=== PATIENT | male | born 1935 | race Caucasian/White ===

== ENCOUNTER 2017-12-01 15:04 | Inpatient (IN) | payer MEDICARE ==
[~2017-12-01] VITALS: Ht 188 cm; Wt 112.6 kg
--- NOTE | 2017-12-01 17:10 | Diagnostic Imaging Report ---
A single frontal view of the chest. HISTORY: Shortness of breath, A. fib COMPARISON: None available. DISCUSSION: Portable technique, limits sensitivity of the exam. Soft tissue attenuation partially limits sensitivity of the exam. Multiple additional artifacts. Tubes/Lines: A single-lead implanted left-sided cardiac device. Lungs and pleura: Low lung volumes result in bibasilar vascular crowding, accentuation of the pulmonary interstitial markings, central pulmonary vasculature, and the cardiac silhouette. Allowing for these limitations, the findings are as follows: Probable small to moderate left and small right pleural effusions with adjacent atelectasis. Diffuse pulmonary increased interstitial markings. Underlying pathology could be obscured. Heart and mediastinum: The cardiac silhouette and central pulmonary vessel suture are enlarged.. Bones: No acute osseous lesion is identified, given this limited exam. IMPRESSION: 1. Findings compatible with volume overload resulting in central pulmonary vascular congestion, interstitial edema, and left greater than right pleural effusions with adjacent atelectasis. 2. Recommend short term follow up routine PA and lateral chest radiographs, in 6-8 weeks, to evaluate for resolution versus return to baseline. Signed by: Dr. Cristobal Martinez D.O., M.M.M. on 12/01/2017 5:07 PM
[2017-12-01] MEDS ORDERED: MORPHINE SULFATE 2 MG/ML SYR IV PRN (17:30)
[2017-12-01] MEDS ORDERED: ONDANSETRON HCL INJ 2 MG/ML VIAL IV PRN (17:30)
[2017-12-01] MEDS ORDERED: SODIUM CHLORIDE FLUSH 10 ML SYR INJ PRN (17:30)
[2017-12-01] MEDS ORDERED: DEXTROSE 50% SYRINGE 50 ML IV PRN (19:00)
[2017-12-01 20:20] VITALS: BP 129/73
[2017-12-01 20:45] VITALS: BP 129/73
[2017-12-01] MEDS ORDERED: INSULIN REGULAR, HUMAN 100 UNIT/1 ML 3ML VIAL SQ SCH (21:00)
[2017-12-01] MEDS: FUROSEMIDE INJ 10 MG/ML 4 ML VIAL IV SCH (22:51)
[2017-12-01] MEDS: POTASSIUM CHLORIDE 20 MEQ TAB CR PO SCH (22:52)
[2017-12-01] MEDS: ZOLPIDEM TARTRATE 5 MG TAB PO PRN (23:13)
[2017-12-02] VITALS (7 sets, daily range): BP systolic 111–145; BP diastolic 61–76
[2017-12-02 03:03] LABS: CREATINE KINASE 113 IU/L (30-200)
[2017-12-02 06:41] LABS: CHOL/HDL RATIO 1.8 (3.9-4.7)
[2017-12-02] MEDS ORDERED: DILTIAZEM HCL 5 MG/ML 5 ML VIAL IV STA (06:46)
[2017-12-02 06:54] LABS: BASOPHILS % 0.2 % (0.0-1.0); EOSINOPHILS # (AUTO) 0.1 (0.0-0.4); EOSINOPHILS % 1.2 % (0.0-6.0); HEMATOCRIT 32.5 % (38.2-49.6); HEMOGLOBIN 10.2 g/dL (14.0-18.0); LYMPHOCYTES % 9.4 % (18.0-39.1); MEAN CORPUSCULAR HEMOGLOBIN 27.7 pg (28-32); MEAN CORPUSCULAR HGB CONC 31.4 g/dL (31-35); MEAN CORPUSCULAR VOLUME 88.3 fL (81-99); MONOCYTES # (AUTO) 1.3 (0.2-0.8); MONOCYTES % 12.6 % (4.4-11.3); NEUTROPHILS # (AUTO) 7.8 (2.1-6.9); NEUTROPHILS % 76.2 % (38.7-80.0); PLATELET COUNT 213 x10e3/uL (140-360); RED BLOOD COUNT 3.68 x10e6/uL (4.3-5.7)
[2017-12-02] MEDS ORDERED: DILTIAZEM HCL VIAL 5 ML ONE (08:55)
[2017-12-02] MEDS ORDERED: ASPIRIN 325 MG TAB EC PO SCH (09:00)
[2017-12-02] MEDS ORDERED: DILTIAZEM HCL 5 MG/ML 5 ML VIAL IV ONE (09:00)
[2017-12-02] MEDS ORDERED: DILTIAZEM HCL 60 MG TAB PO ONE (09:00)
[2017-12-02 09:14] LABS: BLOOD UREA NITROGEN 30 mg/dL (7-26); BUN/CREATININE RATIO 32 (6-25); CALCIUM 7.9 mg/dL (8.4-10.2); CARBON DIOXIDE 19 mmol/L (22-29); CHLORIDE 95 mmol/L (98-107); CREATININE, SERUM 0.95 mg/dL (0.72-1.25); EST GLOMERULAR FILTRATION RATE > 60 ML/MIN (60-); MAGNESIUM 1.9 MG/DL (1.3-2.1); SODIUM 131 mmol/L (136-145)
[2017-12-02 09:19] LABS: GLUCOSE 58 mg/dL (74-118)
[2017-12-02] MEDS: POTASSIUM CHLORIDE 20 MEQ TAB CR PO SCH (09:25)
[2017-12-02] MEDS: FUROSEMIDE INJ 10 MG/ML 4 ML VIAL IV SCH (09:25)
[2017-12-02 09:35] LABS: THYROID STIMULATING HORMONE 5.595 uIU/mL (0.350-4.940)
[2017-12-02 10:00] LABS: CREATINE KINASE 92 IU/L (30-200)
[2017-12-02] MEDS ORDERED: MORPHINE SULFATE INJ 4 MG/ML INJ IV PRN (10:45)
[2017-12-02] MEDS ORDERED: ACETAMINOPHEN 325 MG TAB PO PRN (10:45)
[2017-12-02] MEDS ORDERED: LACTULOSE SYRUP 20 GM/30 ML UDC PO ONE (10:45)
[2017-12-02] MEDS: MAGNESIUM/ALUMINUM/SIMETHICONE 30 ML UDC PO PRN ×2 (11:00→22:04)
[2017-12-02] MEDS ORDERED: DIGOXIN 0.25 MG TAB PO ONE (11:15)
[2017-12-02] MEDS ORDERED: DIGOXIN INJ 0.25 MG/ML 2 ML AMP IV ONE (11:15)
[2017-12-02] MEDS: INSULIN LISPRO 100 UNIT/1 ML 3ML VIAL SQ SCH ×3 (11:30→21:00)
[2017-12-02 11:31] LABS: INR 4.19
[2017-12-02 11:32] LABS: PARTIAL THROMBOPLASTIN TIME 46.5 seconds (23.8-35.5)
[2017-12-02 11:40] LABS: PROTHROMBIN TIME 43.2 seconds (11.9-14.5)
[2017-12-02] MEDS ORDERED: IPRATROPIUM BROMIDE 0.02% 2.5 ML NEB ONE (12:48)
[2017-12-02] MEDS: IPRATROPIUM BROMIDE 0.02% 2.5 ML NEB NEB PRN ×3 (12:57→20:11)
--- NOTE | 2017-12-02 14:03 | Diagnostic Imaging Report ---
EXAMINATION: CHEST SINGLE (PORTABLE) INDICATION: Pulmonary edema. COMPARISON: None FINDINGS: TUBES and LINES: Left-sided single lead cardiac device in unchanged position. LUNGS: Low lung volumes. Bilateral perihilar and interstitial opacities. Left retrocardiac opacity and patchy opacities at the lung bases. PLEURA: No pleural effusion or pneumothorax. HEART AND MEDIASTINUM: The cardiomediastinal silhouette is unchanged. Atherosclerotic calcifications of the aortic arch. BONES AND SOFT TISSUES: No acute osseous lesion. Soft tissues are unremarkable. UPPER ABDOMEN: No free air under the diaphragm. IMPRESSION: Persistent moderate pulmonary interstitial edema as well as moderate left and small right pleural effusions. Bibasilar opacities, likely atelectasis. Signed by: Dr. Mimi Haines MD on 12/02/2017 2:00 PM
--- NOTE | 2017-12-02 14:40 | Diagnostic Imaging Report ---
Exam: KUB. Clinical History: Constipation Comparison: None Findings: Frontal view of the abdomen demonstrates a nonobstructive bowel gas pattern with moderate retained stool. Scattered vascular calcifications are seen.Scattered degenerative changes are seen about the bones. Suspected right femoral catheter. Likely pleural effusions and atelectasis at the lung bases. Impression: Findings likely due to constipation. Signed by: Dr. Ac Nickerson M.D. on 12/02/2017 2:37 PM
[2017-12-02] MEDS: AMIODARONE HCL 200 MG TAB PO SCH ×2 (15:18→21:00)
--- NOTE | 2017-12-02 16:19 | Diagnostic Imaging Report ---
EXAMINATION: CHEST XRAY LINE PLACEMENT INDICATION: Status post PICC placement. COMPARISON: Cheat radiograph 12/02/2017 at 1038AM. FINDINGS: TUBES and LINES: Left-sided single lead cardiac device in unchanged position. Interval placement of right sided PICC which terminates in the mid SVC. LUNGS: Low lung volumes. Bilateral perihilar and interstitial opacities. Left retrocardiac opacity and patchy opacities at the lung bases. PLEURA: No pleural effusion or pneumothorax. HEART AND MEDIASTINUM: The cardiomediastinal silhouette is enlarged, as before. Atherosclerotic calcifications of the aortic arch. BONES AND SOFT TISSUES: No acute osseous lesion. Soft tissues are unremarkable. UPPER ABDOMEN: No free air under the diaphragm. IMPRESSION: Interval placement of right sided PICC terminating in the mid SVC. No evidence of pneumothorax. Persistent moderate pulmonary interstitial edema as well as moderate left and small right pleural effusions. Bibasilar opacities, likely atelectasis. Signed by: Dr. Mimi Haines MD on 12/02/2017 4:15 PM
[2017-12-02] MEDS ORDERED: ENOXAPARIN SOD INJ 40 MG/0.4 ML SYR SC SCH (17:00)
[2017-12-02] MEDS: CARVEDILOL 12.5 MG TAB PO SCH (17:36)
[2017-12-02] MEDS: LACTULOSE SYRUP 20 GM/30 ML UDC PO PRN (18:30)
[2017-12-02] MEDS ORDERED: LANTUS 3ML100 UNITS/ SC (19:50)
[2017-12-02] MEDS ORDERED: NEURONTIN300 MG PO (19:50)
[2017-12-02] MEDS ORDERED: CALCIUM 500+D1 EACH PO (19:50)
[2017-12-02] MEDS ORDERED: LISINOPRIL2.5 MG PO (19:50)
[2017-12-02] MEDS ORDERED: LASIX40 MG PO (19:50)
[2017-12-02] MEDS ORDERED: NAMENDA10 MG PO (19:50)
[2017-12-02] MEDS ORDERED: GABAPENTIN300 MG/6 M (19:50)
[2017-12-02] MEDS ORDERED: ALLOPURINOL300 MG PO (19:50)
[2017-12-02] MEDS ORDERED: BACLOFEN10 MG PO (19:50)
[2017-12-02] MEDS ORDERED: COLCRYS0.6 MG PO (19:50)
[2017-12-02] MEDS ORDERED: SYNTHROID100 MCG PO (19:50)
[2017-12-02] MEDS ORDERED: ARICEPT5 MG PO (19:50)
[2017-12-02] MEDS ORDERED: HEPARIN SOD (PORCINE) 5,000 UNIT/ML VIAL SC SCH (21:00)
[2017-12-02] MEDS: ZOLPIDEM TARTRATE 5 MG TAB PO PRN (22:04)
[2017-12-03] VITALS (7 sets, daily range): BP systolic 116–159; BP diastolic 60–91
--- NOTE | 2017-12-03 01:15 | Consultation ---
DATE OF CONSULTATION: December 02, 2017 CARDIAC CONSULTATION REASON FOR CONSULTATION: Atrial fibrillation with rapid ventricular response, congestive heart failure, volume overload, and pulmonary edema. HISTORY: This is an 82-year-old gentleman who is very, very and very poor historian. Apparently, he is known with longstanding history of coronary artery disease, status post coronary artery bypass surgery many years ago. He does have history of chronic atrial fibrillation. He had pacemaker implantation in February 2017. He is followed in [facility]. He does have a lot of issues. The most active ones are chronic nonhealing ulcer on the foot "seen and evaluated" by a physician near [facility] and [facility]. Patient seen several times. An arterial Doppler done as per patient which shows severe disease in all the vessels below the knee and nothing can be done to help it. Patient is very limited and very frustrated by this. His other problem is chronic constipation. He does have chronic swelling of the lower extremities, shortness of breath on minimal activity, severe discoloration of the lower extremity and severe constipation. Patient came to this institution because "he is having severe constipation". Patient noted he is in atrial fibrillation with rapid ventricular response. He had also volume overload status. A cardiac consultation is obtained. His issues can be summarized as follows 1. Debility. Patient is very much debilitated, cannot do anything, very limited by his symptoms and his lower extremity symptoms. He is having failure to thrive and he is getting progressively worse. 2. Cardiac: Congestive heart failure like symptoms but more of right-sided heart failure with chronic swelling of the lower extremities. Chronic discoloration of the lower extremity. Repeated infection of the lower extremity. 3. GI: Severe constipation "I am miserable". 4. : Increased frequency of urination and very symptomatic. 5. Peripheral vascular: Severe peripheral arterial vascular disease, venous insufficiency and nonhealing ulcer, suffering with that for over more than a year. REVIEW OF SYSTEMS GENERAL: Basically as per above. In addition, patient is very debilitated, poor quality of life, and very chronically and acutely ill. HEENT: Decreased hearing. HEMATOLOGY: Increased bruising, but no active bleeding. SOCIAL HISTORY: He claims he stays at home with his . They take care of each other. There is no family member to confirm that. He denied smoking or drinking. HOME MEDICATIONS 1. Warfarin 5 mg a day. 2. Lopressor 25 mg a day. 3. Levothyroxine 100 mcg a day. 4. Insulin. 5. Restoril. 6. Other p.r.n. medications. ALLERGIES: ADHESIVE TAPE. PAST MEDICAL HISTORY 1. Coronary artery bypass surgery many years ago. 2. By description, congestive heart failure of many years' duration. 3. Chronic atrial fibrillation. 4. Pacemaker. 5. Diabetes mellitus with end-organ damage. 6. Chronic kidney insufficiency. 7. Hypothyroidism. 8. Pulmonary hypertension and right-sided heart failure. 9. 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 10. Severe peripheral arterial vascular disease. 11. Severe peripheral arterial vascular insufficiency. 12. Chronic cellulitis. 13. Chronic infection of the lower extremities. FAMILY HISTORY: Unable to get. PHYSICAL EXAMINATION GENERAL: Chronic and acutely ill gentleman, very debilitated. VITAL SIGNS: Height of 6 feet 2 inches, weight of 254 pounds. Blood pressure 120/60, heart rate of 120, irregularly regular of atrial fibrillation, respiratory rate of 24. HEENT: Patient has marked decreased hearing. He does have decreased vision. NECK: Elevation of jugular venous pulsation and V waves are noted . CHEST: Bilateral crackles, kyphoscoliosis. HEART: Tachycardia, irregular heart rate. Increased intensity of 2nd heart sound. Tricuspid regurgitation. ABDOMEN: Liver edge is palpable. Obese. EXTREMITIES: Severe discoloration, severe skin changes, severe venous insufficiency. No pulses below the femoral level. Dressing of the left foot with "I have ulcer". NEUROLOGIC: Decreased hearing. Very limited activity. Able to move his extremities. LAB DATA: As per chart. EKG showing atrial fibrillation with frequent PVCs, pacemaker activity noted every now and then. IMPRESSIONS 1. Atrial fibrillation with rapid ventricular response. 2. By symptoms suggestive of congestive heart failure, questionable systolic, questionable diastolic. 3. Definite pulmonary hypertension and right-sided heart failure. 4. Nonhealing ulcer of the left extremity of long duration. 5. Venous insufficiency. 6. Peripheral arterial vascular disease 7. Chronic kidney disease. 8. Hypothyroidism. 9. Diabetes mellitus with end-organ damage. 10. Debility. 11. Decreased hearing. PLAN: Cardiac-chacon, would recommend the following: Patient will be given beta blockers. Will give him amiodarone for the time being until we get an echocardiogram to see his ejection fraction. Will stop giving Cardizem. Will give digoxin. Will try Coreg because of the clinical finding of congestive heart failure. If his EF is good by echo, then we will shift him to metoprolol. Patient already anticoagulated with warfarin. Will check his INR. Prognosis seems to be very guarded because of comorbidities and general condition as described above. Care will be addressed toward patient's improvement of status and adjustment of his medical therapy. This was a lengthy visit for more than 1 hour. Also, his echo reviewed at [facility] which showed marked enlargement of both atria, severe tricuspid regurgitation, and pulmonary hypertension. Pulmonary artery pressure of at least 60 mmHg. Will follow patient's progression with you and would like to thank you for your kind referral. Job#: [id number] SARAH
[2017-12-03 06:15] LABS: BASOPHILS % 0.2 % (0.0-1.0); EOSINOPHILS # (AUTO) 0.1 (0.0-0.4); EOSINOPHILS % 1.4 % (0.0-6.0); HEMATOCRIT 30.1 % (38.2-49.6); HEMOGLOBIN 9.3 g/dL (14.0-18.0); LYMPHOCYTES # (AUTO) 0.6 (1.0-3.2); LYMPHOCYTES % 6.7 % (18.0-39.1); MEAN CORPUSCULAR HEMOGLOBIN 27.2 pg (28-32); MEAN CORPUSCULAR HGB CONC 30.9 g/dL (31-35); MONOCYTES # (AUTO) 0.9 (0.2-0.8); MONOCYTES % 9.5 % (4.4-11.3); NEUTROPHILS # (AUTO) 7.7 (2.1-6.9); NEUTROPHILS % 81.8 % (38.7-80.0); PLATELET COUNT 174 x10e3/uL (140-360); RED BLOOD COUNT 3.42 x10e6/uL (4.3-5.7); RED CELL DISTRIBUTION WIDTH 14.8 % (11.7-14.4)
[2017-12-03 06:23] LABS: INR 4.18
[2017-12-03 06:32] LABS: ANION GAP 13.3 mmol/L (8-16); BLOOD UREA NITROGEN 22 mg/dL (7-26); BUN/CREATININE RATIO 27 (6-25); CALCIUM 8.7 mg/dL (8.4-10.2); CARBON DIOXIDE 26 mmol/L (22-29); CHLORIDE 93 mmol/L (98-107); CREATININE, SERUM 0.83 mg/dL (0.72-1.25); EST GLOMERULAR FILTRATION RATE > 60 ML/MIN (60-); GLUCOSE 109 mg/dL (74-118); POTASSIUM 4.3 mmol/L (3.5-5.1); SODIUM 128 mmol/L (136-145)
[2017-12-03 06:35] LABS: PROTHROMBIN TIME 43.1 seconds (11.9-14.5)
[2017-12-03] MEDS ORDERED: COUMADIN5 MG PO (06:39)
[2017-12-03 06:55] LABS: CHOL/HDL RATIO 1.9 (3.9-4.7)
[2017-12-03 07:14] LABS: THYROID STIMULATING HORMONE 5.837 uIU/mL (0.350-4.940)
[2017-12-03] MEDS: INSULIN LISPRO 100 UNIT/1 ML 3ML VIAL SQ SCH ×4 (07:30→21:54)
[2017-12-03] MEDS: CARVEDILOL 12.5 MG TAB PO SCH (08:20)
[2017-12-03] MEDS: AMIODARONE HCL 200 MG TAB PO SCH (08:20)
[2017-12-03] MEDS: LACTULOSE SYRUP 20 GM/30 ML UDC PO PRN (08:20)
[2017-12-03] MEDS: COLLAGENASE 5 GM TUBE TOP SCH (08:21)
[2017-12-03] MEDS ORDERED: COLLAGENASE OINTMENT 30 GM TUBE TP PRN (09:00)
[2017-12-03] MEDS: MAGNESIUM/ALUMINUM/SIMETHICONE 30 ML UDC PO PRN ×2 (09:11→21:55)
[2017-12-03] MEDS: IPRATROPIUM BROMIDE 0.02% 2.5 ML NEB NEB PRN (11:10)
[2017-12-03] MEDS ORDERED: DIGOXIN INJ 0.25 MG/ML 2 ML AMP IV ONE (11:15)
[2017-12-03] MEDS ORDERED: DIGOXIN 0.25 MG TAB PO ONE (11:15)
[2017-12-03] MEDS ORDERED: FUROSEMIDE 40 MG TAB PO SCH (11:15)
[2017-12-03] MEDS ORDERED: CARVEDILOL 12.5 MG TAB PO ONE (11:15)
[2017-12-03] MEDS: FUROSEMIDE 40 MG TAB PO SCH ×2 (11:37→16:30)
[2017-12-03] MEDS ORDERED: CITRATE OF MAGNESIA 300ML BOTTLE PO ONE (13:15)
--- NOTE | 2017-12-03 14:49 | Diagnostic Imaging Report ---
EXAM: CT ABDOMEN/PELVIS W DATE: 12/03/2017 1:02 PM INDICATION: \S\r/o malignancy \S\[id number] \S\1350 COMPARISON: None FINDINGS: Please see same day CTA chest. IMPRESSION: As above. Signed by: Dr. Marlon Gonsalez MD on 12/03/2017 2:46 PM
--- NOTE | 2017-12-03 14:49 | Diagnostic Imaging Report ---
EXAM: CT Chest, Abdomen and Pelvis WITH contrast INDICATION: Malignancy, pericardial effusion, shortness of breath COMPARISON: None. TECHNIQUE: Chest, Abdomen and Pelvis was scanned utilizing a multidetector helical scanner after administration of IV contrast. Coronal and sagittal reformations were obtained. IV CONTRAST: 100 mL Isovue-370 COMPLICATIONS: None RADIATION DOSE: Total DLP: 1081 mGy*cm Estimated effective dose: (DLP x 0.015 x size factor) mSv CTDIvol has been reviewed. It is below the limits set by the Radiation Protocol Committee (RPC). Appropriate CT dose reduction techniques were utilized. FINDINGS: Chest: Lower Neck: Left chest wall pacemaker with single lead terminating right ventricular apex. Right PICC terminates SVC. Heart and Great Vessels: The aorta and main pulmonary artery measure 40 and 37 mm. respectively. Moderate to large pericardial effusion with Hounsfield units ranging between 6 and 28. No distinct pericardial enhancement or nodularity identified. No central pulmonary embolus identified. Moderate mitral annular calcifications aortic, and coronary artery calcifications. Moderate left atrial enlargement and mild to moderate right atrial enlargement. Lymph Nodes: Scattered small mediastinal lymph nodes, not enlarged by size criteria. Lungs: Moderate bilateral effusions simple by Hounsfield criteria with no distinct pleural enhancement or nodularity. Groundglass opacities in the lingula and right middle lobe with more focal/dense areas of consolidation in the lung bases present with heterogeneous enhancement. Moderate apical predominant centrilobular emphysematous changes and mild biapical scarring present. There is no pneumothorax. Abdomen: Solid Organs: Splenic granulomata. Small exophytic cyst superior right kidney. Nonobstructing calculi left kidney. Questionable nodularity of the liver. Otherwise, solid organs unremarkable. Upper GI Tract: Fluid-filled esophagus to the level of the upper esophagus. Stomach is partially decompressed, limiting evaluation. No small bowel obstructive changes. Vascularity: Advanced aortic vascular calcifications with no aneurysm. Lymph Nodes: No suspicious adenopathy by size criteria. Other: Moderate abdominal and pelvic free fluid. Pelvis: Bladder: Decompressed with Cohn catheter, limiting evaluation. Other: None. Colon: Colonic evaluation limited by lack of enteric contrast and partial decompression. No definite acute colonic findings. Appendix not inflamed. Bones: Moderate degenerative changes spine. IMPRESSION: 1. Moderate to large pericardial effusion, moderate bilateral pleural effusions, moderate amount of abdominal and pelvic free fluid with body wall anasarca suggesting volume overload. 2. Biatrial enlargement for which echocardiogram could be obtained for further evaluation. 3. Groundglass and alveolar opacities in the mid and lower lungs with patchy enhancement likely represent combination of atelectasis and pneumonia. Given moderate fluid in the esophagus, component of aspiration not excluded. 4. Questionable cirrhotic morphology of the liver. Clinical and laboratory correlation recommended. 5. Moderate centrilobular emphysematous change. 6. Mild aneurysmal dilatation ascending aorta. 7. Dilated pulmonary trunk, which can be seen in the setting of pulmonary hypertension. Signed by: Dr. Marlon Gonsalez MD on 12/03/2017 2:45 PM
[2017-12-03] MEDS ORDERED: IOPAMIDOL 370 MG/ML 200 ML INFUS..BTL INJ ONE (15:54)
[2017-12-03] MEDS ORDERED: SODIUM CHLORIDE 0.9% 50ML 50 ML ONE (15:54)
[2017-12-03] MEDS: IPRATROPIUM BROMIDE 0.02% 2.5 ML NEB NEB SCH ×2 (16:45→19:30)
[2017-12-03] MEDS ORDERED: CARVEDILOL 12.5 MG TAB PO SCH (17:00)
--- NOTE | 2017-12-03 21:48 | Discharge Summary ---
MICHAEL DISCONTINUED (00:05) AJAY KEYS MD Job#: [id number] CQ
[2017-12-03] MEDS: ZOLPIDEM TARTRATE 5 MG TAB PO PRN (21:55)
--- NOTE | 2017-12-03 22:11 | Consultation ---
DATE OF CONSULTATION: December 03, 2017 REASON FOR CONSULT: Pericardial effusion; requested by Dr. Mago Feldman. HISTORY: I saw and evaluated this patient on December 03, 2017. He is a very nice 82-year-old man, who is a poor historian and has a long history of coronary artery disease with previous coronary artery bypass surgery, as well as chronic atrial fibrillation and pacemaker implantation in February 2017. He was admitted on this occasion because of weight gain of approximately 40 lbs, peripheral edema, and chronic constipation. Those problems are being treated. He was found to be in atrial fibrillation with rapid ventricular response. A CT scan of the chest was obtained and revealed a bszhxfmz-au-hhhpy pericardial effusion. At present, there was no sign of tamponade. Patient's fluid retention has been progressive. His peripheral edema and weight gain have severely limited his lifestyle and are becoming progressively worse. Patient does not have any chest pain. He does have a fairly severe peripheral arterial disease. He has been evaluated by physicians in the [facility] and has been told that no intervention is possible on the arterial insufficiency of the lower extremities. PAST MEDICAL HISTORY: Positive for coronary artery disease with coronary artery bypass grafting. Positive for congestive heart failure, chronic atrial fibrillation, pacemaker placement, diabetes, chronic renal insufficiency, hypoparathyroidism, pulmonary hypertension with right-sided heart failure, chronic nonhealing right ulcer of the right foot, peripheral arterial disease, chronic infection of the lower extremities. MEDICATION AT HOME: Coumadin, Lopressor, levothyroxine, insulin, Restoril. ALLERGIES: NONE KNOWN. FAMILY HISTORY: No clear history of early coronary artery disease in his family, but he is a poor historian. SOCIAL HISTORY: Negative for smoking, alcohol or IV drugs. REVIEW OF SYSTEMS GENERAL: Positive for fatigue and malaise. Positive for weight gain of approximately 40 lbs over the last several months. NEUROLOGIC: Negative for focal neurologic deficit or dysarthria. HEENT: Positive for decreased vision and decreased hearing. CARDIAC: Negative for chest pain. Positive for palpitation. PULMONARY: Positive for shortness of breath. Negative for wheezing. GI: Positive for abdominal distention and constipation. Negative for diarrhea. : Negative for hematuria or dysuria. ENDOCRINE: Negative for polyuria or polydipsia. VASCULAR: Positive for peripheral arterial disease with nonhealing ulcers. SKIN: Negative for rashes or itching. HEMATOLOGIC: Negative for clotting or bleeding. INFECTIOUS: Negative for fevers or sweating. PSYCHIATRIC: Negative for depression or anxiety. PHYSICAL EXAMINATION GENERAL: A well-developed, well-nourished, jolly man sitting up in bed. VITAL SIGNS: Blood pressure 130/70, pulse 110 and irregularly irregular, respirations 18 and unlabored. He is 6 feet 2 inches tall and weighs 254 lbs. NECK: Supple and nontender. No JVD. CARDIAC: An irregular rate and an irregular rhythm. There are no audible murmurs. LUNGS: Scattered crackles, but are otherwise clear. ABDOMEN: Distended. No palpable mass. BACK: No CVA tenderness. No muscular spasms. EXTREMITIES: There is 2+ peripheral edema to the knees bilaterally. No cyanosis. There is a nonhealing ulcer of the right lower extremity. SKIN: No rashes except around the nonhealing ulcer on the right foot. MUSCULOSKELETAL: Full range of motion at all joints. No evidence of swelling. NEUROLOGIC: Cranial nerves II-XII intact. Sensation intact to light touch and pinprick bilaterally. Strength is 5/5 in all extremities. LYMPHATICS: Negative for cervical, clavicular, femoral adenopathy. LABORATORIES AND IMAGING: CT scan shows mbiwrujx-cs-zwlvz pericardial effusion as above. White count is 9.39, hemoglobin 9.3, hematocrit 30.1, platelet count 174,000. INR is 4.18 with PT 43.1. Sodium is 128, with BUN 22 and creatinine 0.83. IMPRESSION: An 82-year-old man with multiple medical problems. He has a skbcehzs-pl-iytxi pericardial effusion by computed tomography scan. The contribution of the pericardial effusion to his other medical problems is unclear at present. I will discuss these issues with his other physicians. Thank you very much for asking me to see this nice man. Job#: [id number] CQ
[2017-12-04] VITALS (8 sets, daily range): BP systolic 110–156; BP diastolic 56–72
[2017-12-04 05:55] LABS: BASOPHILS % 0.1 % (0.0-1.0); EOSINOPHILS # (AUTO) 0.1 (0.0-0.4); EOSINOPHILS % 1.2 % (0.0-6.0); HEMATOCRIT 29.8 % (38.2-49.6); HEMOGLOBIN 9.3 g/dL (14.0-18.0); LYMPHOCYTES # (AUTO) 0.6 (1.0-3.2); LYMPHOCYTES % 6.8 % (18.0-39.1); MEAN CORPUSCULAR HEMOGLOBIN 27.5 pg (28-32); MEAN CORPUSCULAR HGB CONC 31.2 g/dL (31-35); MEAN CORPUSCULAR VOLUME 88.2 fL (81-99); MONOCYTES # (AUTO) 0.8 (0.2-0.8); MONOCYTES % 9.8 % (4.4-11.3); NEUTROPHILS # (AUTO) 6.6 (2.1-6.9); NEUTROPHILS % 81.6 % (38.7-80.0); PLATELET COUNT 150 x10e3/uL (140-360); RED BLOOD COUNT 3.38 x10e6/uL (4.3-5.7); RED CELL DISTRIBUTION WIDTH 14.5 % (11.7-14.4)
[2017-12-04 06:14] LABS: INR 3.57; PROTHROMBIN TIME 38.1 seconds (11.9-14.5)
[2017-12-04 06:21] LABS: ALANINE AMINOTRANSFERASE 22 IU/L (0-55); ALBUMIN 3.1 g/dL (3.5-5.0); ALBUMIN/GLOBULIN RATIO 1.1 (0.8-2.0); ALKALINE PHOSPHATASE 53 IU/L (40-150); ANION GAP 11.3 mmol/L (8-16); BLOOD UREA NITROGEN 19 mg/dL (7-26); BUN/CREATININE RATIO 24 (6-25); CALCIUM 8.6 mg/dL (8.4-10.2); CARBON DIOXIDE 29 mmol/L (22-29); CHLORIDE 89 mmol/L (98-107); EST GLOMERULAR FILTRATION RATE > 60 ML/MIN (60-); GLUCOSE 117 mg/dL (74-118); POTASSIUM 4.3 mmol/L (3.5-5.1); SODIUM 125 mmol/L (136-145)
[2017-12-04] MEDS: IPRATROPIUM BROMIDE 0.02% 2.5 ML NEB NEB SCH ×4 (07:00→20:00)
[2017-12-04] MEDS: INSULIN LISPRO 100 UNIT/1 ML 3ML VIAL SQ SCH ×4 (07:30→21:43)
[2017-12-04 10:18] LABS: EOSINOPHILS % (MANUAL) 4 % (0-7); LYMPHOCYTES % (MANUAL) 7 % (19-48); MONOCYTES % (MANUAL) 11 % (3.4-9.0); NEUTROPHILS % (MANUAL) 78 % (40-74); PLATELET ESTIMATE ADEQUATE; PLATELET MORPHOLOGY COMMENT NORMAL; RBC MORPHOLOGY COMMENT NORMAL
[2017-12-04] MEDS: COLLAGENASE 5 GM TUBE TOP SCH (10:26)
[2017-12-04] MEDS: MAGNESIUM/ALUMINUM/SIMETHICONE 30 ML UDC PO PRN (12:43)
[2017-12-04] MEDS: LACTULOSE SYRUP 20 GM/30 ML UDC PO PRN (12:43)
[2017-12-04] MEDS ORDERED: FUROSEMIDE INJ 10 MG/ML 4 ML VIAL IV SCH (14:45)
[2017-12-04] MEDS ORDERED: CITRATE OF MAGNESIA 300ML BOTTLE PO NR ×2 (15:00→19:00)
[2017-12-04] MEDS: METOPROLOL TARTRATE 50 MG TAB PO SCH (18:38)
[2017-12-04] MEDS: ZOLPIDEM TARTRATE 5 MG TAB PO PRN (22:17)
[2017-12-05] VITALS (8 sets, daily range): BP systolic 112–127; BP diastolic 55–67
[2017-12-05] MEDS ORDERED: FUROSEMIDE INJ 10 MG/ML 4 ML VIAL IV SCH (03:00)
[2017-12-05 06:09] LABS: ALANINE AMINOTRANSFERASE 24 IU/L (0-55); ALBUMIN 3.3 g/dL (3.5-5.0); ALBUMIN/GLOBULIN RATIO 1.1 (0.8-2.0); ALKALINE PHOSPHATASE 61 IU/L (40-150); BLOOD UREA NITROGEN 17 mg/dL (7-26); BUN/CREATININE RATIO 21 (6-25); CALCIUM 8.8 mg/dL (8.4-10.2); CARBON DIOXIDE 33 mmol/L (22-29); CHLORIDE 90 mmol/L (98-107); EST GLOMERULAR FILTRATION RATE > 60 ML/MIN (60-); GLUCOSE 127 mg/dL (74-118); SODIUM 132 mmol/L (136-145)
[2017-12-05 06:31] LABS: INR 2.48; PROTHROMBIN TIME 28.7 seconds (11.9-14.5)
[2017-12-05] MEDS: IPRATROPIUM BROMIDE 0.02% 2.5 ML NEB NEB SCH ×4 (07:20→19:30)
[2017-12-05] MEDS: INSULIN LISPRO 100 UNIT/1 ML 3ML VIAL SQ SCH ×4 (08:30→21:10)
[2017-12-05] MEDS: METOPROLOL TARTRATE 50 MG TAB PO SCH ×3 (09:00→21:10)
[2017-12-05] MEDS: COLLAGENASE 5 GM TUBE TOP SCH (09:00)
[2017-12-05] MEDS: MAGNESIUM/ALUMINUM/SIMETHICONE 30 ML UDC PO PRN (11:31)
[2017-12-05] MEDS ORDERED: FUROSEMIDE INJ 10 MG/ML 4 ML VIAL IV ONE (13:00)
[2017-12-05] MEDS ORDERED: WARFARIN SOD 2 MG TAB PO SCH (17:00)
[2017-12-05] MEDS ORDERED: FUROSEMIDE 40 MG TAB PO SCH (18:00)
[2017-12-05] MEDS: LACTULOSE SYRUP 20 GM/30 ML UDC PO PRN (19:21)
[2017-12-05] MEDS: ZOLPIDEM TARTRATE 5 MG TAB PO PRN (21:10)
[2017-12-06] VITALS (8 sets, daily range): BP systolic 108–139; BP diastolic 58–68
[2017-12-06] MEDS: FUROSEMIDE 40 MG TAB PO SCH ×2 (05:40→17:45)
[2017-12-06 05:53] LABS: BASOPHILS % 0.2 % (0.0-1.0); EOSINOPHILS # (AUTO) 0.3 (0.0-0.4); EOSINOPHILS % 2.9 % (0.0-6.0); HEMATOCRIT 29.7 % (38.2-49.6); HEMOGLOBIN 9.2 g/dL (14.0-18.0); LYMPHOCYTES # (AUTO) 0.4 (1.0-3.2); LYMPHOCYTES % 3.7 % (18.0-39.1); MEAN CORPUSCULAR HEMOGLOBIN 27.6 pg (28-32); MEAN CORPUSCULAR VOLUME 89.2 fL (81-99); MONOCYTES % 9.3 % (4.4-11.3); NEUTROPHILS # (AUTO) 8.9 (2.1-6.9); NEUTROPHILS % 83.5 % (38.7-80.0); PLATELET COUNT 138 x10e3/uL (140-360); RED BLOOD COUNT 3.33 x10e6/uL (4.3-5.7); RED CELL DISTRIBUTION WIDTH 14.7 % (11.7-14.4)
[2017-12-06 06:03] LABS: INR 1.75; PROTHROMBIN TIME 21.8 seconds (11.9-14.5)
[2017-12-06 06:14] LABS: ALANINE AMINOTRANSFERASE 22 IU/L (0-55); ALBUMIN 3.1 g/dL (3.5-5.0); ALBUMIN/GLOBULIN RATIO 1.1 (0.8-2.0); ALKALINE PHOSPHATASE 56 IU/L (40-150); ANION GAP 13.8 mmol/L (8-16); BLOOD UREA NITROGEN 16 mg/dL (7-26); BUN/CREATININE RATIO 20 (6-25); CALCIUM 8.7 mg/dL (8.4-10.2); CARBON DIOXIDE 33 mmol/L (22-29); CHLORIDE 90 mmol/L (98-107); CREATININE, SERUM 0.79 mg/dL (0.72-1.25); EST GLOMERULAR FILTRATION RATE > 60 ML/MIN (60-); GLUCOSE 115 mg/dL (74-118); POTASSIUM 3.8 mmol/L (3.5-5.1); SODIUM 133 mmol/L (136-145)
[2017-12-06] MEDS: IPRATROPIUM BROMIDE 0.02% 2.5 ML NEB NEB SCH ×4 (06:45→20:05)
[2017-12-06] MEDS: INSULIN LISPRO 100 UNIT/1 ML 3ML VIAL SQ SCH ×4 (07:30→21:36)
--- NOTE | 2017-12-06 07:33 | Diagnostic Imaging Report ---
EXAMINATION: CHEST SINGLE (PORTABLE) INDICATION: \S\pulm edema \S\[id number] \S\0623 COMPARISON: Chest CT dated 12/03/2017 FINDINGS: AP view TUBES and LINES: Right PICC in place with tip overlying cavoatrial junction. Stable left sided single lead cardiac device. LUNGS and PLEURA: Lungs are well inflated. Bilateral pleural effusions, left greater than right. No visible pneumothorax. Pulmonary vascular congestion and mild interstitial edema. HEART AND MEDIASTINUM: The cardiac silhouette is enlarged. BONES AND SOFT TISSUES: No acute osseous lesion. Soft tissues are unremarkable. UPPER ABDOMEN: No free air under the diaphragm. IMPRESSION: Bilateral pleural effusions, left greater than right. Underlying atelectasis/pneumonia cannot be excluded. Unchanged pulmonary vascular congestion and mild interstitial edema. Signed by: Dr. Juanjo Hodgson MD on 12/06/2017 7:30 AM
[2017-12-06 07:54] LABS: EOSINOPHILS % (MANUAL) 3 % (0-7); LYMPHOCYTES % (MANUAL) 5 % (19-48); MONOCYTES % (MANUAL) 8 % (3.4-9.0); NEUTROPHILS % (MANUAL) 84 % (40-74); PLATELET ESTIMATE ADEQUATE; PLATELET MORPHOLOGY COMMENT NORMAL; RBC MORPHOLOGY COMMENT NORMAL
[2017-12-06] MEDS: COLLAGENASE 5 GM TUBE TOP SCH ×2 (09:00→21:36)
[2017-12-06] MEDS: METOPROLOL TARTRATE 50 MG TAB PO SCH (09:30)
[2017-12-06] MEDS: MAGNESIUM/ALUMINUM/SIMETHICONE 30 ML UDC PO PRN (14:56)
--- NOTE | 2017-12-06 16:25 | Progress Note ---
DATE: SUBJECTIVE: The patient continues to have some dyspnea with exertion. He is diuresing well. PHYSICAL EXAMINATION VITAL SIGNS: The patient is afebrile. The blood pressure is 108/60 and his saturation is 94%. Pulse is 82 and respiratory rate is 18. HEENT: Shows no facial swelling or erythema. Nasal mucosa is normal. The oropharynx is normal. LYMPHATIC: Shows no submandibular, cervical, or supraclavicular adenopathy. CARDIAC: Reveals a regular rate and rhythm with normal S1 and S2. LUNGS: Auscultation of the lungs reveals a few crackles at the bases. ABDOMEN: Soft and nontender. There is no rebound or guarding. EXTREMITIES: Shows no leg edema or calf tenderness. IMPRESSION 1. Ohsrp-iu-dbjooma systolic congestive heart failure. 2. Atrial fibrillation. 3. Pulmonary hypertension type 2. 4. Pericardial effusion. PLAN 1. Continue diuresis. 2. Continue rate control and anticoagulation for atrial fib. 3. Repeat PT/INR in the morning. 4. Repeat labs in the morning. Job#: [id number] LPA
[2017-12-06] MEDS: WARFARIN SOD 2 MG TAB PO SCH (17:13)
[2017-12-06] MEDS: LACTULOSE SYRUP 20 GM/30 ML UDC PO PRN (18:46)
[2017-12-06] MEDS: METOPROLOL TARTRATE 25 MG TAB PO SCH (21:36)
[2017-12-07] VITALS (8 sets, daily range): BP systolic 104–148; BP diastolic 56–75
[2017-12-07] MEDS: FUROSEMIDE 40 MG TAB PO SCH ×2 (05:23→18:05)
[2017-12-07 05:35] LABS: BASOPHILS % 0.2 % (0.0-1.0); EOSINOPHILS # (AUTO) 0.2 (0.0-0.4); HEMATOCRIT 29.5 % (38.2-49.6); HEMOGLOBIN 9.1 g/dL (14.0-18.0); LYMPHOCYTES # (AUTO) 0.7 (1.0-3.2); LYMPHOCYTES % 6.4 % (18.0-39.1); MEAN CORPUSCULAR HEMOGLOBIN 27.3 pg (28-32); MEAN CORPUSCULAR HGB CONC 30.8 g/dL (31-35); MEAN CORPUSCULAR VOLUME 88.6 fL (81-99); MONOCYTES % 9.4 % (4.4-11.3); NEUTROPHILS # (AUTO) 8.3 (2.1-6.9); NEUTROPHILS % 81.5 % (38.7-80.0); PLATELET COUNT 143 x10e3/uL (140-360); RED BLOOD COUNT 3.33 x10e6/uL (4.3-5.7); RED CELL DISTRIBUTION WIDTH 14.8 % (11.7-14.4)
[2017-12-07 05:51] LABS: INR 1.37
[2017-12-07 05:58] LABS: ALANINE AMINOTRANSFERASE 20 IU/L (0-55); ALKALINE PHOSPHATASE 58 IU/L (40-150); ANION GAP 13.7 mmol/L (8-16); BLOOD UREA NITROGEN 14 mg/dL (7-26); BUN/CREATININE RATIO 18 (6-25); CARBON DIOXIDE 33 mmol/L (22-29); CHLORIDE 89 mmol/L (98-107); CREATININE, SERUM 0.78 mg/dL (0.72-1.25); EST GLOMERULAR FILTRATION RATE > 60 ML/MIN (60-); GLUCOSE 125 mg/dL (74-118); POTASSIUM 3.7 mmol/L (3.5-5.1); SODIUM 132 mmol/L (136-145)
[2017-12-07] MEDS: IPRATROPIUM BROMIDE 0.02% 2.5 ML NEB NEB SCH ×4 (06:50→19:50)
[2017-12-07] MEDS: INSULIN LISPRO 100 UNIT/1 ML 3ML VIAL SQ SCH ×4 (07:30→21:47)
[2017-12-07] MEDS: METOPROLOL TARTRATE 25 MG TAB PO SCH ×2 (10:00→21:47)
[2017-12-07] MEDS: LACTULOSE SYRUP 20 GM/30 ML UDC PO PRN (10:00)
[2017-12-07] MEDS ORDERED: CITRATE OF MAGNESIA 300ML BOTTLE PO ONE (16:00)
--- NOTE | 2017-12-07 16:10 | Progress Note ---
DATE: SUBJECTIVE: The patient complains of constipation today. He continues to have some dyspnea with exertion. PHYSICAL EXAMINATION VITAL SIGNS: The patient is afebrile. The vitals signs are stable. HEENT: Shows no facial swelling or erythema. The nasal mucosa is normal. The oropharynx is normal. LYMPHATIC: Shows no submandibular, cervical, or supraclavicular adenopathy. NECK: Shows no JVD or thyromegaly. There is no nuchal rigidity. CARDIAC: Reveals a regular rate and rhythm with normal S1 and S2. There are no murmurs or rubs. LUNGS: Auscultation of lungs shows clear breath sounds bilaterally. There is no wheezing. ABDOMEN: Soft and nontender. There is no rebound or guarding. EXTREMITIES: Shows no leg edema or calf tenderness. There is no cyanosis or clubbing. SKIN: Shows no rashes. NEUROLOGIC: Shows no focal abnormalities. IMPRESSION 1. Slvxo-s-qiuhcwy systolic congestive heart failure. 2. Atrial fibrillation. 3. Pulmonary hypertension type 2. 4. Pericardial effusion. 5. Constipation. PLAN 1. Mag citrate. 2. Continue dieresis. 3. Anticoagulation. 4. Rate control. Job#: [id number] EDENILSON
[2017-12-07] MEDS: WARFARIN SOD 2 MG TAB PO SCH (17:37)
[2017-12-07] MEDS: ZOLPIDEM TARTRATE 5 MG TAB PO PRN (21:47)
[2017-12-07] MEDS: COLLAGENASE 5 GM TUBE TOP SCH (21:47)
[2017-12-08] VITALS (9 sets, daily range): BP systolic 104–117; BP diastolic 51–69
[2017-12-08] MEDS: FUROSEMIDE 40 MG TAB PO SCH (05:31)
[2017-12-08 05:56] LABS: INR 1.33; PROTHROMBIN TIME 17.6 seconds (11.9-14.5)
[2017-12-08] MEDS: INSULIN LISPRO 100 UNIT/1 ML 3ML VIAL SQ SCH ×4 (07:30→21:00)
[2017-12-08] MEDS: IPRATROPIUM BROMIDE 0.02% 2.5 ML NEB NEB SCH ×4 (07:40→19:15)
[2017-12-08] MEDS: METOPROLOL TARTRATE 25 MG TAB PO SCH ×2 (09:00→21:54)
--- NOTE | 2017-12-08 09:43 | Diagnostic Imaging Report ---
PROCEDURE: CHEST SINGLE (PORTABLE) COMPARISON: 12/06/2017. INDICATIONS: SOB TODAY FINDINGS: Lungs are main well inflated. Marked cardiomegaly with interstitial edema and small bilateral pleural effusions with passive atelectasis of the lower lobes, unchanged. Left subclavian implanted cardiac device and right upper extremity PICC is stable in position. No acute osseous abnormality.. CONCLUSION: Stable chest relative to 12/06/2017. Persistent findings include cardiomegaly partially attributable to pericardial effusion, moderate bilateral pleural effusions, and interstitial pulmonary edema. Dictated by: Que Ferrara M.D. on 12/08/2017 at 9:52 Electronically approved by: Que Ferrara M.D. on 12/08/2017 at 9:52
[2017-12-08] MEDS: FUROSEMIDE INJ 10 MG/ML 4 ML VIAL IV SCH ×2 (10:15→21:54)
[2017-12-08 10:16] LABS: BLOOD UREA NITROGEN 14 mg/dL (7-26); BUN/CREATININE RATIO 17 (6-25); CALCIUM 9.5 mg/dL (8.4-10.2); CARBON DIOXIDE 33 mmol/L (22-29); CHLORIDE 88 mmol/L (98-107); CREATININE, SERUM 0.84 mg/dL (0.72-1.25); EST GLOMERULAR FILTRATION RATE > 60 ML/MIN (60-); GLUCOSE 134 mg/dL (74-118); SODIUM 133 mmol/L (136-145)
[2017-12-08] MEDS: WARFARIN SOD 2.5 MG TAB PO SCH (18:16)
[2017-12-08] MEDS: MAGNESIUM/ALUMINUM/SIMETHICONE 30 ML UDC PO PRN (19:58)
[2017-12-08] MEDS: COLLAGENASE 5 GM TUBE TOP SCH (21:54)
[2017-12-08] MEDS: ZOLPIDEM TARTRATE 5 MG TAB PO PRN (23:03)
[2017-12-09 04:00] VITALS: BP 103/55
[2017-12-09 06:06] LABS: BASOPHILS % 0.3 % (0.0-1.0); EOSINOPHILS # (AUTO) 0.2 (0.0-0.4); EOSINOPHILS % 3.1 % (0.0-6.0); HEMATOCRIT 28.8 % (38.2-49.6); HEMOGLOBIN 8.9 g/dL (14.0-18.0); LYMPHOCYTES # (AUTO) 0.7 (1.0-3.2); LYMPHOCYTES % 10.2 % (18.0-39.1); MEAN CORPUSCULAR HEMOGLOBIN 27.1 pg (28-32); MEAN CORPUSCULAR HGB CONC 30.9 g/dL (31-35); MEAN CORPUSCULAR VOLUME 87.8 fL (81-99); MONOCYTES # (AUTO) 0.8 (0.2-0.8); MONOCYTES % 12.7 % (4.4-11.3); NEUTROPHILS # (AUTO) 4.8 (2.1-6.9); NEUTROPHILS % 73.2 % (38.7-80.0); PLATELET COUNT 128 x10e3/uL (140-360); RED BLOOD COUNT 3.28 x10e6/uL (4.3-5.7); RED CELL DISTRIBUTION WIDTH 14.7 % (11.7-14.4)
[2017-12-09 06:17] LABS: INR 1.5; PROTHROMBIN TIME 19.4 seconds (11.9-14.5)
[2017-12-09 06:41] LABS: ALANINE AMINOTRANSFERASE 21 IU/L (0-55); ALKALINE PHOSPHATASE 58 IU/L (40-150); ANION GAP 14.4 mmol/L (8-16); BLOOD UREA NITROGEN 16 mg/dL (7-26); BUN/CREATININE RATIO 18 (6-25); CALCIUM 9.1 mg/dL (8.4-10.2); CARBON DIOXIDE 36 mmol/L (22-29); CHLORIDE 89 mmol/L (98-107); EST GLOMERULAR FILTRATION RATE > 60 ML/MIN (60-); GLUCOSE 111 mg/dL (74-118); POTASSIUM 3.4 mmol/L (3.5-5.1); SODIUM 136 mmol/L (136-145)
[2017-12-09] MEDS: INSULIN LISPRO 100 UNIT/1 ML 3ML VIAL SQ SCH ×3 (07:30→16:30)
[2017-12-09] MEDS: IPRATROPIUM BROMIDE 0.02% 2.5 ML NEB NEB SCH (07:30)
[2017-12-09 08:02] VITALS: BP 126/61
[2017-12-09 08:40] VITALS: BP 126/61
[2017-12-09] MEDS: METOPROLOL TARTRATE 25 MG TAB PO SCH (08:40)
[2017-12-09] MEDS: FUROSEMIDE INJ 10 MG/ML 4 ML VIAL IV SCH (08:40)
[2017-12-09] MEDS ORDERED: POTASSIUM CHLORIDE 20 MEQ TAB CR PO NR (10:45)
[2017-12-09] MEDS ORDERED: COUMADIN2.5 MG PO (11:48)
[2017-12-09] MEDS ORDERED: LANTUS 3ML100 UNITS/ SQ (11:49)
[2017-12-09] MEDS ORDERED: METOPROLOL TART25 MG PO (11:50)
[2017-12-09] MEDS ORDERED: FUROSEMIDE40 MG PO (11:50)
[2017-12-09] MEDS ORDERED: ALLOPURINOL300 MG PO (11:51)
[2017-12-09 12:11] VITALS: BP 104/57
--- NOTE | 2017-12-09 14:08 | Discharge Summary ---
PRIMARY CARE DOCTOR: Marla Barrera MD, with Antonette. FINAL DIAGNOSES 1. Atrial fibrillation with rapid ventricular response, now rate controlled. 2. Pulmonary edema with pericardial effusion and pulmonary hypertension, status post intravenous Lasix diuresis. 3. Hyponatremia, resolved. 4. Metabolic acidosis, resolved. 5. Diabetes. 6. Supratherapeutic international normalization ratio. 7. Previous automatic implantable cardioverter-defibrillator. 8. Constipation, resolved. DRY CHAIN OFFBEARER: Dr. Sidhu, cardiology. PROCEDURES/STUDIES PERFORMED 1. Peripherally inserted central catheter line placement. 2. Echocardiogram times 2. 3. CT of the chest, abdomen and pelvis. HISTORY: Per H and P. HOSPITAL COURSE: The patient was admitted. Initially, he was noted to have AFib with RVR. With metoprolol, the patient is currently rate controlled. Initially, his INR was therapeutic, initially at 4.19. The patient's Coumadin was held and subsequently restarted at 2.5 mg daily. It went down as low as 1.33. Currently, it is back up to 1.5. The patient will follow up with his PCP for another INR check in about 3 days. I notified his PCP. The patient was also found to have pericardial effusion and pulmonary edema. CT was done looking for malignancy, and this was negative. Therefore, this is not a malignant pericardial effusion. IV Lasix diuresis was given. The patient diuresed very well. His repeat echocardiogram showed improved pericardial effusion. The patient was able to breathe better as well. As far as his sugar control, at home the patient was hypoglycemic on 50 units of Lantus b.i.d., which was changed to 10 units daily. His TSH was also checked, which was unremarkable. The patient was seen and examined today. It took 40 minutes total to discharge this patient including updating his son at the bedside today. The patient does have hypoxia despite diuresis. Therefore, he will go home with home oxygen. CONDITION ON DISCHARGE: Improved. DISCHARGE MEDICATIONS: Please see medication reconciliation form. NANCI LEMONS M.D. Job#: [id number] cc:MARLA BARRERA MD
[2017-12-09 16:38] VITALS: BP 125/69
[2017-12-09] MEDS: WARFARIN SOD 2.5 MG TAB PO SCH (17:27)
[2017-12-09] MEDS ORDERED: FUROSEMIDE 40 MG TAB PO SCH (18:00)
[2017-12-09 19:40] VITALS: BP 114/56
== END 2017-12-09 19:50 | disposition home health service (06) | DRG 291 ==
LOC: FSED 15:04 → ERHOLD 17:25 → MED/SURG 20:18
PROVIDERS: ADMIT Internal Medicine; ATTEND Internal Medicine
PROC: 02HV33Z Insertion of Infusion Device into Superior Vena Cava, Percutaneous Approach (ICD-10-PCS; principal; 2017-12-01)
PROC: 02HV33Z Insertion of Infusion Device into Superior Vena Cava, Percutaneous Approach (ICD-10-PCS; 2017-12-02)
DX: I13.0 Hypertensive heart and chronic kidney disease with heart failure and stage 1 through stage 4 chronic kidney disease, or unspecified chronic kidney disease (principal); I50.23 Acute on chronic systolic (congestive) heart failure; E87.1 Hypo-osmolality and hyponatremia; E87.2 Acidosis; I31.3 Pericardial effusion (noninflammatory); N18.9 Chronic kidney disease, unspecified; I48.2 Chronic atrial fibrillation; R09.02 Hypoxemia; Z87.891 Personal history of nicotine dependence; Z82.49 Family history of ischemic heart disease and other diseases of the circulatory system; Z79.01 Long term (current) use of anticoagulants; Z95.810 Presence of automatic (implantable) cardiac defibrillator; E11.51 Type 2 diabetes mellitus with diabetic peripheral angiopathy without gangrene; K59.00 Constipation, unspecified; Z95.1 Presence of aortocoronary bypass graft; R53.81 Other malaise; E03.9 Hypothyroidism, unspecified; L97.519 Non-pressure chronic ulcer of other part of right foot with unspecified severity; I27.22 Pulmonary hypertension due to left heart disease; K74.60 Unspecified cirrhosis of liver; D64.9 Anemia, unspecified; Z79.4 Long term (current) use of insulin
CPT/HCPCS: 36415; 36569; 51700; 71045; 71260; 74018; 74177; 80048; 80053; 80061; 80162; 82550; 82553; 82948; 83735; 83880; 84443; 84484; 85025; 85610; 85730; 93005; 93306; 94640; 94760; 96372; 96374; 97139; 99284; J1160; J1940; J2405; Q9967

== ENCOUNTER 2017-12-09 00:09 | Observation (INO) | payer MEDICARE ==
[~2017-12-09] VITALS: Ht 188 cm; Wt 108.4 kg
[~2017-12-09 00:09] MED LIST: ALLOPURINOL300 MG PO; ARICEPT5 MG PO; BACLOFEN10 MG PO; CALCIUM 500+D1 EACH PO; COLCRYS0.6 MG PO; COUMADIN5 MG PO; GABAPENTIN300 MG/6 M; LANTUS 3ML100 UNITS/ SC; LASIX40 MG PO; LISINOPRIL2.5 MG PO; NAMENDA10 MG PO; NEURONTIN300 MG PO; SYNTHROID100 MCG PO
[2017-12-09] MEDS ORDERED: COUMADIN2.5 MG PO (11:48)
[2017-12-09] MEDS ORDERED: LANTUS 3ML100 UNITS/ SQ (11:49)
[2017-12-09] MEDS ORDERED: METOPROLOL TART25 MG PO (11:50)
[2017-12-09] MEDS ORDERED: FUROSEMIDE40 MG PO (11:50)
[2017-12-09] MEDS ORDERED: ALLOPURINOL300 MG PO (11:51)
[2017-12-10 01:11] VITALS: BP 117/71
--- OUTSIDE RECORDS SUMMARY | 2017-12-10 01:11 | XMS REPORT ---
[facility] Address Unknown Phone Unavailable Care Team Providers Care Home Delivery Driver Name Role Phone Miller LEMONS Unavailable Unavailable Payers Payer Name Policy Type Policy Number Effective Date Expiration Date Problems This patient has no known problems. Allergies, Adverse Reactions, Alerts Allergy Name Allergy Type Status Severity Reaction(s) Onset Date Inactive Date Treating Clinician Comments No Known Allergies DA Active U 2017-03-08 00:00:00 Medications This patient has no known medications. Results Test Description Test Time Test Comments Text Results Atomic Results Result Comments CHEST SINGLE (PORTABLE) 2017-12-08 09:52:00 [place] [address] Patient Name: RUBEN GRIFFIN MR #: [id number] : 1935 Age/Sex: 82/M Req #: [id number] Adm Physician: NANCI LEMONS MD Ordered by: NANCI LEMONS MD Report #: [id number] Location: MED/SURG Room/Bed: [facility] Procedure: [id number] DX/CHEST SINGLE (PORTABLE) Exam Date: 12/08/17 Exam Time: 0930 REPORT STATUS: Signed PROCEDURE: CHEST SINGLE (PORTABLE) COMPARISON: 12/06/2017. INDICATIONS: SOB TODAY FINDINGS: Lungs are main well inflated. Marked cardiomegaly with interstitial edema and small bilateral pleural effusions with passive atelectasis of the lower lobes, unchanged. Left subclavian implanted cardiac device and right upper extremity PICC is stable in position. No acute osseous abnormality.. CONCLUSION: Stable chest relative to 12/06/2017. Persistent findings include cardiomegaly partially attributable to pericardial effusion, moderate bilateral pleural effusions, and interstitial pulmonary edema. Dictated by: Marcello Schultz M.D. on 12/08/2017 at 9:52 Electronically approved by: Marcello Schultz M.D. on 12/08/2017 at 9:52 Dictated By: MARCELLO SCHULTZ MD 1 Transcribed By: CARLY on 12/08/17951 COPY TO: NANCI LEMONS MD CHEST SINGLE (PORTABLE) 2017-12-06 07:28:00 [place] [address] Patient Name: RUBEN GRIFFIN MR #: [id number] : 1935 Age/Sex: 82/M Req #: [id number] [facility] Physician: NANCI LEMONS MD Ordered by: NANCI LEMONS MD Report #: [id number] Location: MED/SURG Room/Bed: [facility] Procedure: [id number] DX/CHEST SINGLE (PORTABLE) Exam Date: 12/06/17 Exam Time: 06 REPORT STATUS: Signed EXAMINATION: CHEST SINGLE (PORTABLE) INDICATION: COMPARISON: Chest CT dated 12/03/2017 FINDINGS: AP view TUBES and LINES: Right PICC in place with tip overlying cavoatrial junction. Stable left sided single lead cardiac device. LUNGS and PLEURA: Lungs are well inflated. Bilateral pleural effusions, left greater than right. No visible pneumothorax. Pulmonary vascular congestion and mild interstitial edema. HEART AND MEDIASTINUM: The cardiac silhouette is enlarged. BONES AND SOFT TISSUES: No acute osseous lesion. Soft tissues are unremarkable. UPPER ABDOMEN: No free air under the diaphragm. IMPRESSION: Bilateral pleural effusions, left greater than right. Underlying atelectasis/pneumonia cannot be excluded. Unchanged pulmonary vascular congestion and mild interstitial edema. Signed by: Dr. Juanjo Alexander MD on 12/06/2017 7:30 AM Dictated By: JUANJO ALEXANDER MD 9 Transcribed By: HAMILTON on 12/06/17729 COPY TO: NANCI LEMONS MD CT ABDOMEN/PELVIS W 2017-12-03 14:45:00 [place] [address] Patient Name: RUBEN GRIFFIN MR #: [id number] : 1935 Age/Sex: 82/M Req #: [id number] Adm Physician: NANCI LEMONS MD Ordered by: NANCI LEMONS MD Report #: [id number] Location: MED/SURG Room/Bed: [facility] Procedure: [id number] CT/CT ABDOMEN/PELVIS W Exam Date: 12/03/17 Exam Time: 1350 REPORT STATUS: Signed EXAM: CT ABDOMEN/PELVIS W DATE: 12/03/2017 1:02 PM INDICATION: COMPARISON: None FINDINGS: Please see same day CTA chest. IMPRESSION: As above. Signed by: Dr. Sav Gonsalez MD on 12/03/2017 2:46 PM Dictated By: SAV GONSALEZ MD 45 Transcribed By: HAMILTON on 12/03/171445 COPY TO: NANCI LEMONS MD CT CHEST W 2017-12-03 14:37:00 [place] [address] Patient Name: RUBEN GRIFFIN MR #: [id number] : 1935 Age/Sex: 82/M Req #: [id number] Adm Physician: NANCI LEMONS MD Ordered by: NANCI LEMONS MD Report #: [id number] Location: MED/SURG Room/Bed: [facility] Procedure: [id number] CT/CT CHEST W Exam Date: 12/03/17 Exam Time: 1350 REPORT STATUS: Signed EXAM: CT Chest, Abdomen and Pelvis WITH contrast INDICATION: Malignancy, pericardial effusion, shortness of breath COMPARISON: None. TECHNIQUE: Chest, Abdomen and Pelvis was scanned utilizing a multidetector helical scanner after administration of IV contrast. Coronal and sagittal reformations were obtained. IV CONTRAST: 100 mL Isovue-370 COMPLICATIONS: None RADIATION DOSE: Total DLP: 1081 mGy*cm Estimated effective dose: (DLP x 0.015 x size factor) mSv CTDIvol has been reviewed. It is below the limits set by the Radiation Protocol Committee (RPC). Appropriate CT dose reduction techniques were utilized. FINDINGS: Chest: Lower Neck: Left chest wall pacemaker with single lead terminating right ventricular apex. Right PICC terminates SVC. Heart and Great Vessels: The aorta and main pulmonary artery measure 40 and 37 mm. respectively. Moderate to large pericardial effusion with Hounsfield units ranging between 6 and 28. No distinct pericardial enhancement or nodularity identified. No central pulmonary embolus identified. Moderate mitral annular calcifications aortic, and coronary artery calcifications. Moderate left atrial enlargement and mild to moderate right atrial enlargement. Lymph Nodes: Scattered small mediastinal lymph nodes, not enlarged by size criteria. Lungs: Moderate bilateral effusions simple by Hounsfield criteria with no distinct pleural enhancement or nodularity. Groundglass opacities in the lingula and right middle lobe with more focal/dense areas of consolidation in the lung bases present with heterogeneous enhancement. Moderate apical predominant centrilobular emphysematous changes and mild biapical scarring present. There is no pneumothorax. Abdomen: Solid Organs: Splenic granulomata. Small exophytic cyst superior right kidney. Nonobstructing calculi left kidney. Questionable nodularity of the liver. Otherwise, solid organs unremarkable. Upper GI Tract: Fluid-filled esophagus to the level of the upper esophagus. Stomach is partially decompressed, limiting evaluation. No small bowel obstructive changes. Vascularity: Advanced aortic vascular calcifications with no aneurysm. Lymph Nodes: No suspicious adenopathy by size criteria. Other: Moderate abdominal and pelvic free fluid. Pel vis: Bladder: Decompressed with Cohn catheter, limiting evaluation. Other: None. Colon: Colonic evaluation limited by lack of enteric contrast and partial decompression. No definite acute colonic findings. Appendix not inflamed. Bones: Moderate degenerative changes spine. IMPRESSION: 1. Moderate to large pericardial effusion, moderate bilateral pleural effusions, moderate amount of abdominal and pelvic free fluid with body wall anasarca suggesting volume overload. 2. Biatrial enlargement for which echocardiogram could be obtained for further evaluation. 3. Groundglass and alveolar opacities in the mid and lower lungs with patchy enhancement likely represent combination of atelectasis and pneumonia. Given moderate fluid in the esophagus, component of aspiration not excluded. 4. Questionable cirrhotic morphology of the liver. Clinical and laboratory correlation recommended. 5. Moderate centrilobular emphysematous change. 6. Mild aneurysmal dilatation ascending aorta. 7. Dilated pulmonary trunk, which can be seen in the setting of pulmonary hypertension. Signed by: Dr. Sav Gonsalez MD on 12/03/2017 2:45 PM Dictated By: SAV GONSALEZ MD [id number] Transcribed By: HAMILTON on 12/03/17 6780 COPY TO: NANCI LEMONS MD CHEST XRAY LINE PLACEMENT 2017-12-02 16:10:00 [place] [address] Patient Name: RUBEN GRIFFIN MR #: [id number] : 1935 Age/Sex: 82/M Req #: [id number] Adm Physician: NANCI LEMONS MD Ordered by: NANCI LEMONS MD Report #: [id number] Location: MED/SURG Room/Bed: [facility] Procedure: [id number] DX/CHEST XRAY LINE PLACEMENT Exam Date: Exam Time: REPORT STATUS: Signed EXAMINATION: CHEST XRAY LINE PLACEMENT INDICATION: Status post PICC placement. COMPARISON: Cheat radiograph 12/02/2017 at 1038AM. FINDINGS: TUBES and LINES: Left-sided single lead cardiac device in unchanged position. Interval placement of right sided PICC which terminates in the mid SVC. LUNGS: Low lung volumes. Bilateral perihilar and interstitial opacities. Left retrocardiac opacity and patchy opacities at the lung bases. PLEURA: No pleural effusion or pneumothorax. HEART AND MEDIASTINUM: The cardiomediastinal silhouette is enlarged, as before. Atherosclerotic calcifications of the aortic arch. BONES AND SOFT TISSUES: No acute osseous lesion. Soft tissues are unremarkable. UPPER ABDOMEN: No free air under the diaphragm. IMPRESSION: Interval placement of right sided PICC terminating in the mid SVC. No evidence of pneumothorax. Persistent moderate pulmonary interstitial edema as well as moderate left and small right pleural effusions. Bibasilar opacities, likely atelectasis. Signed by: Dr. Em Moreno MD on 12/02/2017 4:15 PM Dictated By: EM MORENO MD 14 Transcribed By: HAMILTON on 12/02/171614 COPY TO: NANCI LEMONS MD ABDOMEN-1VIEW (KUB) 2017-12-02 14:35:00 [place] [address] Patient Name: RUBEN GRIFFIN MR #: [id number] : 1935 Age/Sex: 82/M Req #: [id number] Adm Physician: NANCI LEMONS MD Ordered by: NANCI LEMONS MD Report #: [id number] Location: MED/SURG Room/Bed: [facility] Procedure: [id number] DX/ABDOMEN-1VIEW (KUB) Exam Date: 12/02/17 Exam Time: 1330 REPORT STATUS: Signed Exam: KUB. Clinical History: Constipation Comparison: None Findings: Frontal view of the abdomen demonstrates a nonobstructive bowel gas pattern with moderate retained stool. Scattered vascular calcifications are seen.Scattered degenerative changes are seen about the bones. Suspected right femoral catheter. Likely pleural effusions and atelectasis at the lung bases. Impression: Findings likely due to constipation. Signed by: Dr. Abelino Nickerson M.D. on 12/02/2017 2:37 PM Dictated By: ABELINO NICKERSON MD, MD 36 Transcribed By: HAMILTON on 12/02/171436 COPY TO: NANCI LEMONS MD CHEST SINGLE (PORTABLE) 2017-12-02 13:55:00 [place] [address] Patient Name: RUBEN GRIFFIN MR #: [id number] : 1935 Age/Sex: 82/M Req #: [id number] [facility] Physician: NANCI LEMONS MD Ordered by: NANCI LEMONS MD Report #: [id number] Location: MED/SURG Room/Bed: [facility] Procedure: [id number] DX/CHEST SINGLE (PORTABLE) Exam Date: 12/02/17 Exam Time: 1330 REPORT STATUS: Signed EXAMINATION: CHEST SINGLE (PORTABLE) INDICATION: Pulmonary edema. COMPARISON: None FINDINGS: TUBES and LINES: Left-sided single lead cardiac device in unchanged position. LUNGS: Low lung volumes. Bilateral perihilar and interstitial opacities. Left retrocardiac opacity and patchy opacities at the lung bases. PLEURA: No pleural effusion or pneumothorax. HEART AND MEDIASTINUM: The cardiomediastinal silhouette is unchanged. Atherosclerotic calcifications of the aortic arch. BONES AND SOFT TISSUES: No acute osseous lesion. Soft tissues are unremarkable. UPPER ABDOMEN: No free air under the diaphragm. IMPRESSION: Persistent moderate pulmonary interstitial edema as well as moderate left and small right pleural effusions. Bibasilar opacities, likely atelectasis. Signed by: Dr. Em Moreno MD on 12/02/2017 2:00 PM Dictated By: EM MORENO MD 1400 Transcribed By: HAMILTON on 12/02/17 1400 COPY TO: NANCI LEMONS MD CXR 1 VEW - HOPD 2017-12-01 17:04:00 [place] [address] Patient Name: RUBEN GRIFFIN MR #: [id number] : 1935 Age/Sex: 82/M Req #: [id number] Adm Physician: Ordered by: RUBEN HUSSEIN MD Report #: [id number] [facility] Room/Bed: Procedure: [id number] HOPD/CXR 1 VEW - HOPD Exam Date: 12/01/17 Exam Time: 1650 REPORT STATUS: Signed A single frontal view of the chest. HISTORY: Shortness of breath, A. fib COMPARISON: None available. DISCUSSION: Portable technique, limits sensitivity of the exam. Soft tissue attenuation partially limits sensitivity of the exam. Multiple additional artifacts. Tubes/Lines: A single-lead implanted left-sided cardiac device. Lungs and pleura: Low lung volumes result in bibasilar vascular crowding, accentuation of the pulmonary interstitial markings, central pulmonary vasculature, and the cardiac silhouette. Allowing for these limitations, the findings are as follows: Probable small to moderate left and small right pleural effusions with adjacent atelectasis. Diffuse pulmonary increased interstitial markings. Underlying pathology could be obscured. Heart and mediastinum: The cardiac silhouette and central pulmonary vessel suture are enlarged.. Bones: No acute osseous lesion is identified, given this limited exam. IMPRESSION: 1. Findings compatible with volume overload resulting in central pulmonary vascular congestion, interstitial edema, and left greater than right pleural effusions with adjacent atelectasis. 2. Recommend short term follow up routine PA and lateral chest radiographs, in 6-8 weeks, to evaluate for resolution versus return to baseline. Signed by: Reji ChoOBrenda, M.M.M. on 12/01/2017 5:07 PM Dictated By: GRETCHEN VUONG DO 06 Transcribed By: HAMILTON on 12/01/171706 COPY TO: RUBEN HUSSEIN MD
[2017-12-10] MEDS ORDERED: ONDANSETRON HCL INJ 2 MG/ML VIAL IV PRN (01:30)
[2017-12-10] MEDS ORDERED: LACTULOSE SYRUP 20 GM/30 ML UDC PO PRN (01:30)
[2017-12-10] MEDS ORDERED: MAGNESIUM/ALUMINUM/SIMETHICONE 30 ML UDC PO PRN (01:30)
[2017-12-10] MEDS ORDERED: SODIUM CHLORIDE FLUSH 10 ML SYR INJ PRN (01:30)
[2017-12-10] MEDS ORDERED: ACETAMINOPHEN 325 MG TAB PO PRN (01:30)
[2017-12-10] MEDS ORDERED: DEXTROSE 50% SYRINGE 50 ML IV PRN (01:45)
[2017-12-10 02:29] VITALS: BP 117/71
[2017-12-10] MEDS: FUROSEMIDE 40 MG TAB PO SCH ×2 (06:20→16:50)
[2017-12-10] MEDS: IPRATROPIUM BROMIDE 0.02% 2.5 ML NEB NEB SCH ×3 (07:15→19:30)
[2017-12-10] MEDS: INSULIN LISPRO 100 UNIT/1 ML 3ML VIAL SQ SCH ×3 (07:30→16:30)
[2017-12-10 07:38] VITALS: BP 112/59
[2017-12-10] MEDS ORDERED: METOPROLOL TARTRATE 50 MG TAB PO SCH (09:00)
[2017-12-10] MEDS ORDERED: COLLAGENASE 5 GM TUBE TOP SCH (09:00)
[2017-12-10 09:50] VITALS: BP 112/59
[2017-12-10] MEDS ORDERED: INSULIN DETEMIR 100 UNIT/ML PEN SQ SCH (10:00)
[2017-12-10 10:30] LABS: INR 1.52; PROTHROMBIN TIME 19.6 seconds (11.9-14.5)
[2017-12-10] MEDS ORDERED: TAMSULOSIN HCL 0.4 MG CAP PO ONE (10:30)
--- NOTE | 2017-12-10 11:24 | Diagnostic Imaging Report ---
Examination: Single AP view of the chest. COMPARISON: 12/06/2017 INDICATION: Pulmonary edema DISCUSSION: Right upper extremity PICC has been removed. Left subclavian approach implanted cardiac device is unchanged. Overall, no significant interval change in bilateral pleural effusions and bilateral lower lobe airspace opacity, likely passive atelectasis. Cardiomegaly and interstitial pulmonary edema are also similar in degree. No new consolidation. No acute osseous abnormalities. IMPRESSION: Interval removal of right upper extremity PICC. Otherwise stable chest relative to 12/06/2017. Persistent findings include cardiomegaly with interstitial pulmonary edema, bilateral pleural effusions and lower lobe airspace disease likely atelectasis. Signed by: Dr. Que Ferrara M.D. on 12/10/2017 11:21 AM
[2017-12-10 12:01] VITALS: BP 99/55
[2017-12-10 16:13] VITALS: BP 114/56
[2017-12-10] MEDS ORDERED: WARFARIN SOD 2.5 MG TAB PO SCH (17:00)
[2017-12-10] MEDS ORDERED: TAMSULOSIN HCL 0.4 MG CAP PO SCH (21:00)
[2017-12-11] MEDS ORDERED: BALSAM PERU/CASTOR OIL 5 GM OINT...G. TP SCH (09:00)
[2017-12-11] MEDS ORDERED: COLLAGENASE 5 GM TUBE TOP SCH (09:00)
== END 2017-12-10 20:47 | disposition home health service (06) ==
LOC: MED/SURG 12-10 01:09 → INTOOBSV 12-10 01:09
PROVIDERS: ADMIT Internal Medicine; ATTEND Internal Medicine
DX: J96.10 Chronic respiratory failure, unspecified whether with hypoxia or hypercapnia (principal); Z99.81 Dependence on supplemental oxygen; I48.91 Unspecified atrial fibrillation; I50.32 Chronic diastolic (congestive) heart failure; L89.151 Pressure ulcer of sacral region, stage 1; L89.621 Pressure ulcer of left heel, stage 1; E11.51 Type 2 diabetes mellitus with diabetic peripheral angiopathy without gangrene; Z79.4 Long term (current) use of insulin; E11.621 Type 2 diabetes mellitus with foot ulcer; L97.521 Non-pressure chronic ulcer of other part of left foot limited to breakdown of skin; R33.9 Retention of urine, unspecified; I27.20 Pulmonary hypertension, unspecified; Z79.01 Long term (current) use of anticoagulants
CPT/HCPCS: 36415; 71045; 82948; 85610; 94640 ×2; G0378